=== PATIENT | male | born 1965 | race Hispanic/Latino ===

== ENCOUNTER 2016-05-05 11:04 | Emergency (ER) | payer OTHER, MEDICARE ==
[~2016-05-05] VITALS: Ht 162.6 cm; Wt 78.5 kg
[~2016-05-05 11:04] MED LIST: ASPIR 8181 MG PO; ATORVASTATIN CA20 MG PO; ATORVASTATIN CA40 MG PO; CLOPIDOGREL75 MG PO; COREG12.5 M1 PO; COUMADIN 3 MG TA3 MG PO; ESCITALOPRAM OX10 MG PO; JANUMET 1000 MG1 TAB PO; LANTUS SOL100 UNIT/1 SC; LANTUS100 U/ML SC; LISINOPRIL10 MG PO; LOPID 600 MG T600 MG PO; METFORMIN HCL500 M3 PO; NITROSTAT0.4 M1 SL; PROTONIX40 M3 PO; TOPROL XL25 M1 PO
--- NOTE | 2016-05-05 12:00 | ED GI/GU/ABDOMINAL COMPLAINT ---
History of Present Illness General Chief Complaint: Abdominal Pain/Flank Pain Stated Complaint: LT SIDED ABD PAIN Source: patient, family Exam Limitations: no limitations Vital Signs & Intake/Output Vital Signs & Intake/Output Vital Signs Date Time Temp Pulse Resp B/P Pulse O2 O2 Flow FiO2 Ox Delivery Rate 05/05 1501 97.5 71 20 137/86 96 Room Air 05/05 1150 97.3 86 20 97 Room Air Room Air Allergies Coded Allergies: NO KNOWN ALLERGIES (01/26/14) Reconcile Medications Atorvastatin Calcium 40 MG TABLET 1 TAB PO DAILY CHOLESTEROL (Reported) Carvedilol (Coreg) 12.5 MG TABLET 1 TAB PO BID HEART (Reported) Escitalopram Oxalate 10 MG TABLET 1 TAB PO DAILY DEPRESSION (Reported) Insulin Glargine,Hum.rec.anlog (Lantus Solostar) 100 UNIT/ML (3 ML) INSULN.PEN 56 UNIT SC QPM DIABETES (Reported) Meloxicam (Mobic) 15 MG TABLET 1 TAB PO DAILY PRN PAIN Metformin HCl 500 MG TABLET 1 TAB PO BID DIABETES (Reported) Metoprolol Succ XL (Toprol XL) 25 MG TAB 1 TAB PO DAILY HEART (Reported) Nitroglycerin (Nitrostat) 0.4 MG TAB.SUBL 1 TAB SL AD PRN CHEST PAIN ( Reported) 1st sign of attack; may repeat every 5 minutes until relief; if pain persists after 3 tablets in 15 minutes, prompt medical att Pantoprazole Sodium (Protonix) 40 MG TABLET.DR 1 TAB PO DAILY GI (Reported) Warfarin Sodium (Coumadin) (Unknown Strength) TABLET (Unknown Dose) PO 1700 BLOOD THINNER (Reported) Triage Note: PT TO ED WITH C/O LOW LEFT ABD PAIN RADIATING TO BILATERAL BACK. PT DENIES N/V/D, DENIES URINARY DIFF OR PAIN. Triage Nurses Notes Reviewed? yes Onset: Gradual Duration: constant Timing: recent history Quality/Severity: sharpness, severe, stabbing Severity Numbers: 7 Activities at Onset: physical activity Prior Abdominal Problems: none HPI: Patient is a 50-year-old male with a past medical history significant for CAD, 5 myocardial infarction, CVA, who presents emergency room with a 2 day history of acute onset of persistent left lower quadrant abdominal pain with radiation to the left side of his back. Movements make worse Patient has taken ibuprofen with relief Patient does state that he walk excessively prior to the onset of symptoms however he denies any mechanism injury. Patient is able tolerate by mouth with no change in symptoms. Last bowel movement was within last 24 hours no blood no melena noted. Denies any fever chills chest pain arm pain jaw pain nausea vomiting dysuria hematuria. (MAVIS KELLY) Past History Travel History Traveled to [place] past 21 day No Medical History Any Pertinent Medical History? 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 . MOTHER MOTHER (cva). Hx Contributory? No (MAVIS KELLY) Review of Systems Review of Systems Constitutional: Reports: no symptoms. EENTM: Reports: no symptoms. Respiratory: Reports: no symptoms. Cardiovascular: Reports: no symptoms. GI: Reports: see HPI, abdominal pain. Genitourinary: Reports: no symptoms. Musculoskeletal: Reports: see HPI. Skin: Reports: no symptoms. Neurological/Psychological: Reports: no symptoms. Hematologic/Endocrine: Reports: no symptoms. Immunologic/Allergic: Reports: no symptoms. All Other Systems: Reviewed and Negative (MAVIS KELLY) Physical Exam Physical Exam General Appearance: well developed/nourished, no apparent distress, comfortable Gastrointestinal: normal bowel sounds, soft, LEFT UPPER AND LOWER AND FLANK POINT TENDERNESS NOTED NO RIGHT LOWER QUADRANT PAIN NO REBOUND TENDERNESS Comments: Well-developed well-nourished person in no acute distress HEENT: Normal EENT exam, Neck: Supple, no lymphadenopathy, normal range of motion without pain or tenderness Back: Normal inspection, left paralumbar muscular point tenderness noted, decreased active range of motion noted Cardiovascular: Regular rate and rhythms no murmurs rubs or gallops, normal JVP Respiratory: Chest nontender. No respiratory distress.breath sounds clear to auscultation bilaterally Abdomen: Soft, nontender nondistended, no appreciable organomegaly. Normal bowel sounds. No ascites Extremity: No edema, no calf tenderness to palpation, normal and equal pulses. Neuro: Alert oriented x3, motor sensory normal, Skin: No appreciable rash on exposed skin, skin is warm and dry. Psych: Mood and affect is normal, memory and judgment is normal. Core Measures ACS in differential dx? No Severe Sepsis Present: No Septic Shock Present: No ([place] AQUINO,MAVIS) Progress Differential Diagnosis: AAA, AMI, appendicitis, biliary colic, bowel obstruction , colon cancer, cholecystitis, diverticulitis, epididymitis, esophageal varices, gastritis, hepatitis, hernia, hemorrhoids, ischemic bowel, inflamm bowel dis, Mary-Mauricio tear, orchitis, pancreatitis, prostatitis, peptic ulcer, PUD/GERD, perforated viscous, pyelonephritis, SBO, STD, testicular torsion, ureterolithiasis, urinary retention, urethritis, UTI/pyelo Plan of Care: Orders Procedure Date/time Status URINALYSIS 05/05 1152 Complete PARTIAL THROMBOPLASTIN TIME 05/05 1152 Complete PROTHROMBIN TIME 05/05 1152 Complete LIPASE 05/05 1152 Complete COMPREHENSIVE METABOLIC PANEL 05/05 1152 Complete CBC WITHOUT DIFFERENTIAL 05/05 1152 Complete AMYLASE 05/05 1152 Complete Laboratory Tests 05/05/16 1252: Urine Color YEL, Urine Clarity CLEAR, Urine pH 6.0, Ur Specific [place] 1.020, Urine Protein NEG, Urine Ketones NEG, Urine Nitrite NEG, Urine Bilirubin NEG, Urine Urobilinogen 0.2, Ur Leukocyte Esterase NEG, Ur Microscopic EXAM NOT REQUIRED, Urine Hemoglobin NEG, Urine Glucose NEG 05/05/16 1158: Anion Gap 9, Estimated GFR > 60, BUN/Creatinine Ratio 8.3, Glucose 207 H, Calcium 9.9, Total Bilirubin 0.5, AST 19, ALT 29, Alkaline Phosphatase 95, Total Protein 6.8, Albumin 3.8, Globulin 3.0, Albumin/Globulin Ratio 1.3, Amylase 38, Lipase 92, PT 11.7, INR 1.12, APTT 32, CBC w Diff NO MAN DIFF REQ, RBC 5.11, MCV 87.7, MCH 30.7, RDW 13.3, MPV 8.6, Gran % 66.9, Lymphocytes % 22.2, Monocytes % 4.7, Eosinophils % 5.7 H, Basophils % 0.5, Absolute Granulocytes 7.3 H, Absolute Lymphocytes 2.4, Absolute Monocytes 0.5, Absolute Eosinophils 0.6, Absolute Basophils 0.1, PUBS MCHC 35.1 Patient currently is in no apparent distress. Patient had unremarkable labs and CT scan. Patient had complete resolution of pain with above medications of Vicodin. Due to his present nose and exam findings I suspect patient have abdominal wall muscular back pain On discharge patient had normal steady gait and no apparent distress. (MAVIS KELLY) Diagnostic Imaging: Viewed by Me: CT Scan. Radiology Impression: no acute abnormality Initial ED EKG: none Comments: PATIENT: HERON YEBOAH PRESENT AGE: 50 PATIENT ACCOUNT NO: [id number] : 64 LOCATION: [facility] ORDERING PHYSICIAN: MAVIS AQUINO SERVICE DATE: 05/05/16 EXAM TYPE: CAT - CT ABD & PELVIS W/O IV CONTRAS EXAMINATION: CT ABDOMEN AND PELVIS WITHOUT CONTRAST CLINICAL INFORMATION: Left abdominal pain with radiation to back. COMPARISON: None TECHNIQUE: Multidetector volumetric imaging was performed from the superior aspect of the liver through the pubic symphysis. Sagittal and coronal reformatted images were obtained on the technologist's workstation. DLP: 508.12 mGy-cm FINDINGS: LUNG BASES: The lung bases are clear. There is a trace left pleural effusion. The heart is normal in size. There is no pericardial effusion. LIVER, GALLBLADDER, AND BILIARY TREE: The unenhanced liver is normal in size. No focal hepatic lesion or biliary ductal dilatation is present. The gallbladder is unremarkable with no evidence of radiopaque gallstones, gallbladder wall thickening, or obvious pericholecystic inflammatory changes. PANCREAS: Unremarkable. SPLEEN: Unremarkable. ADRENAL GLANDS: Unremarkable. KIDNEYS AND URETERS: The kidneys are normal in size, shape, and attenuation. No hydronephrosis, hydroureter, or calculi seen. No perinephric stranding. BLADDER: Unremarkable. GASTROINTESTINAL TRACT: The small and large bowel are unremarkable. The appendix is unremarkable. ABDOMINAL WALL: No significant hernia is appreciated. LYMPH NODES: No lymphadenopathy. VASCULAR: The visualized aorta is normal in caliber. PELVIC VISCERA: Unremarkable. OSSEOUS STRUCTURES: Mild degenerative changes of the thoracolumbar spine. IMPRESSION: No CT explanation for left abdominal pain. DICTATED BY: KALE WEBB MD (MAVIS KELLY) Departure Departure Disposition: HOME OR SELF CARE Condition: Stable Clinical Impression Primary Impression: Abdominal pain Secondary Impressions: Back pain Referrals: BISI KOWALSKI,TREY (PCP/Family) Additional Instructions: As discussed begin icing the area directly 20 minutes every 2 hours. Begin the prescription of meloxicam for pain and inflammation. Activity as tolerated. No but on Thursday follow up with YOUR primary care doctor. Prescription is waiting at [place] [facility] Departure Forms: Customer Survey General Discharge Information Prescriptions: Current Visit Scripts Meloxicam (Mobic) 1 TAB PO DAILY PRN PAIN #15 TAB (MAVIS KELLY) PA/TIMBER GRADER Co-Sign Statement Statement: ED Attending supervision documentation- [] I saw and evaluated the patient. I have also reviewed all the pertinent lab results and diagnostic results. I agree with the findings and the plan of care as documented in the PA's/TIMBER GRADER's documentation. [X] I have reviewed the ED Record and agree with the PA's/TIMBER GRADER's documentation. [] Additions or exceptions (if any) to the PAs/TIMBER GRADER's note and plan are summarized below: [] (BIRD KOWALSKI,MYRIAM Clemons)
[2016-05-05 12:09] LABS: ABSOLUTE BASOPHIL COUNT 0.1 /CUMM (0.0-0.2); ABSOLUTE EOSINOPHIL COUNT 0.6 /CUMM (0.0-0.7); ABSOLUTE GRANULOCYTE CT 7.3 /CUMM (1.4-6.5); ABSOLUTE LYMPH COUNT 2.4 /CUMM (1.2-3.4); ABSOLUTE MONOCYTE COUNT 0.5 /CUMM (0.10-0.60); BASOPHIL % 0.5 % (0.0-2.0); EOSINOPHIL % 5.7 % (0-5); GRANULOCYTE % 66.9 % (42.2-75.2); HEMATOCRIT 44.9 % (42-52); MEAN CORPUSCULAR HGB 30.7 PG (27.0-31.0); MEAN CORPUSCULAR HGB CONC 35.1 G/DL (33.0-37.0); MEAN CORPUSCULAR VOLUME 87.7 FL (80.0-94.0); MEAN PLATELET VOLUME 8.6 FL (7.4-10.4); PLATELET COUNT 300 /CUMM (130-400); RBC DISTRIBUTION WIDTH 13.3 % (11.5-14.5); RED BLOOD CELL CT 5.11 /CUMM (4.70-6.10)
[2016-05-05 12:28] LABS: PT 11.7 SEC (9.4-12.5)
[2016-05-05] MEDS ORDERED: ATORVASTATIN CA40 M1 PO (12:31)
[2016-05-05] MEDS ORDERED: COUMADIN3 M1 PO (12:33)
[2016-05-05 12:43] LABS: PTT 32 SEC (25-37)
--- NOTE | 2016-05-05 14:21 | CT SCAN REPORT ---
EXAMINATION: CT ABDOMEN AND PELVIS WITHOUT CONTRAST CLINICAL INFORMATION: Left abdominal pain with radiation to back. COMPARISON: None TECHNIQUE: Multidetector volumetric imaging was performed from the superior aspect of the liver through the pubic symphysis. Sagittal and coronal reformatted images were obtained on the technologist's workstation. DLP: 508.12 mGy-cm FINDINGS: LUNG BASES: The lung bases are clear. There is a trace left pleural effusion. The heart is normal in size. There is no pericardial effusion. LIVER, GALLBLADDER, AND BILIARY TREE: The unenhanced liver is normal in size. No focal hepatic lesion or biliary ductal dilatation is present. The gallbladder is unremarkable with no evidence of radiopaque gallstones, gallbladder wall thickening, or obvious pericholecystic inflammatory changes. PANCREAS: Unremarkable. SPLEEN: Unremarkable. ADRENAL GLANDS: Unremarkable. KIDNEYS AND URETERS: The kidneys are normal in size, shape, and attenuation. No hydronephrosis, hydroureter, or calculi seen. No perinephric stranding. BLADDER: Unremarkable. GASTROINTESTINAL TRACT: The small and large bowel are unremarkable. The appendix is unremarkable. ABDOMINAL WALL: No significant hernia is appreciated. LYMPH NODES: No lymphadenopathy. VASCULAR: The visualized aorta is normal in caliber. PELVIC VISCERA: Unremarkable. OSSEOUS STRUCTURES: Mild degenerative changes of the thoracolumbar spine. IMPRESSION: No CT explanation for left abdominal pain.
[2016-05-05] MEDS ORDERED: MOBIC15 M1 PO (14:50)
[2016-05-05 15:01] VITALS: BP 137/86
== END 2016-05-05 15:02 ==
LOC: ERH 11:04
PROVIDERS: Emergency Medicine
DX: R10.12 Left upper quadrant pain (principal); R10.32 Left lower quadrant pain; M54.9 Dorsalgia, unspecified
CPT/HCPCS: 74176; 81003

== ENCOUNTER 2017-03-05 06:02 | Emergency (ER) | payer OTHER, MEDICARE ==
[~2017-03-05] VITALS: Ht 162.6 cm; Wt 78.5 kg
[~2017-03-05 06:02] MED LIST changes: +ATORVASTATIN CA40 M1 PO; +COUMADIN3 M1 PO; +MOBIC15 M1 PO
--- NOTE | 2017-03-05 06:13 | ED CARDIAC/CP/PALPITATIONS ---
History of Present Illness General Chief Complaint: Chest Pain Stated Complaint: CHEST PAIN HX UT Source: patient Exam Limitations: no limitations Vital Signs & Intake/Output Vital Signs & Intake/Output Vital Signs Date Time Temp Pulse Resp B/P B/P Pulse O2 O2 Flow FiO2 Mean Ox Delivery Rate 03/05 0719 99 22 109/68 100 Nasal 2.0L Cannula 03/05 0555 105 22 109/68 97 Nasal 2.0L Cannula 03/05 0648 100 22 96/58 99 Nasal 2.0L Cannula 03/05 0632 92 20 103/59 98 Nasal 2.0L Cannula 03/05 0620 93 Room Air Room Air 03/05 0515 103 20 123/73 93 Room Air Room Air see triage Allergies Coded Allergies: NO KNOWN ALLERGIES (01/26/14) Reconcile Medications Atorvastatin Calcium 40 MG TABLET 1 TAB PO DAILY CHOLESTEROL (Reported) Carvedilol (Coreg) 12.5 MG TABLET 1 TAB PO BID HEART (Reported) Escitalopram Oxalate 10 MG TABLET 1 TAB PO DAILY DEPRESSION (Reported) Insulin Glargine,Hum.rec.anlog (Lantus Solostar) 100 UNIT/ML (3 ML) INSULN.PEN 56 UNIT SC QPM DIABETES (Reported) Meloxicam (Mobic) 15 MG TABLET 1 TAB PO DAILY PRN PAIN Metformin HCl 500 MG TABLET 1 TAB PO BID DIABETES (Reported) Metoprolol Succ XL (Toprol XL) 25 MG TAB 1 TAB PO DAILY HEART (Reported) Nitroglycerin (Nitrostat) 0.4 MG TAB.SUBL 1 TAB SL AD PRN CHEST PAIN ( Reported) 1st sign of attack; may repeat every 5 minutes until relief; if pain persists after 3 tablets in 15 minutes, prompt medical att Pantoprazole Sodium (Protonix) 40 MG TABLET.DR 1 TAB PO DAILY GI (Reported) Warfarin Sodium (Coumadin) (Unknown Strength) TABLET (Unknown Dose) PO 1700 BLOOD THINNER (Reported) Triage Nurses Notes Reviewed? yes Onset: Abrupt Duration: hour(s): (FEW) Timing: single episode today Location: central Radiation: substernal Activities at Onset: sleep Prior Chest Pain/Card Workup: SHOULDERS Aspirin Today: no aspirin today HPI: 51 year this is a 51-year-old male with history of coronary, persistent smoker who presents to the ER with chief complaint of chest pain that woke him up at 3 AM from sleep. He reports a heaviness in his chest radiating to her shoulders. Positive shortness of breath and nausea but no vomiting. He tried taking 2 nitroglycerin at home without relief. History of multiple MIs. He still smokes about 1-1/2 packs per day. Patient states his doctors are per [facility]. From medical charts he has a history of CAD with LAD stenting in 2007 and he states he is compliant with his medications and an implanted device. He reports drinking 2 beers last night. Denies any illicit drug use. (Sally Villalpando MD) Past History Medical History Any Pertinent Medical History? 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 . MOTHER MOTHER (cva). Hx Contributory? No (Sally Villalpando MD) Review of Systems Review of Systems Constitutional: Denies: chills, fever. EENTM: Reports: no symptoms. Respiratory: Reports: short of breath. Denies: cough, sputum production. Cardiovascular: Reports: chest pain. GI: Reports: nausea, vomiting. Genitourinary: Denies: discharge, dysuria, frequency, hematuria. Musculoskeletal: Reports: no symptoms. Skin: Reports: no symptoms. Neurological/Psychological: Reports: no symptoms. Hematologic/Endocrine: Denies: bruising, bleeding, polyuria, polydipsia. Immunologic/Allergic: Reports: no symptoms. All Other Systems: Reviewed and Negative (Sally Villalpando MD) Physical Exam Physical Exam General Appearance: well developed/nourished, alert, awake Head: atraumatic, normal appearance Eyes: Bilateral: normal appearance, PERRL, EOMI. Ears, Nose, Throat: normal pharynx, normal ENT inspection, hearing grossly normal Neck: normal inspection, supple, full range of motion Respiratory: normal breath sounds, chest non-tender, no respiratory distress Cardiovascular: regular rate/rhythm Peripheral Pulses: 2+ radial (R), 2+ radial (L) Gastrointestinal: normal bowel sounds, soft, non-tender Back: normal inspection, normal range of motion Neurologic/Psych: no motor/sensory deficits, awake, alert, oriented x 3 Skin: intact, normal color, warm/dry Core Measures ACS in differential dx? Yes CVA/TIA Diagnosis No Sepsis Present: No Sepsis Focused Exam Completed? No (Kwasi KOWALSKI,Sally) Physical Exam Extremities: normal range of motion (Kareen KOWALSKI,Conrad Gaytan) Progress Differential Diagnosis: AMI, unstable angina Plan of Care: Orders Procedure Date/time Status EKG 03/05 0549 Active Telemetry/Technical Operations Vice President 03/05 616 Active LIPASE 03/05 615 Complete ETHANOL 03/05 615 Complete EKG 03/05 615 Active TROPONIN LEVEL 03/05 609 Complete PARTIAL THROMBOPLASTIN TIME 03/05 609 Complete PROTHROMBIN TIME 03/05 609 Complete COMPREHENSIVE METABOLIC PANEL 03/05 609 Complete CBC WITHOUT DIFFERENTIAL 03/05 609 Complete EKG 03/05 603 Active Current Medications Sig/Gennaro Start time Last Medication Dose Stop Time Status Admin Heparin Sodium 25,000 UNIT Q24H 03/05 07 UNVr 03/05 (Porcine) 0748 (Heparin) Sodium Chloride 500 ML Laboratory Tests 03/05/17617: Lipase Cancelled, Serum Alcohol Cancelled 03/05/17615: Anion Gap 16, Estimated GFR > 60, BUN/Creatinine Ratio 11.4, Glucose 184 H, Calcium 9.4, Total Bilirubin 0.3, AST 21, ALT 40, Alkaline Phosphatase 87, Troponin I 0.03, Total Protein 6.5, Albumin 3.8, Globulin 2.7, Albumin/Globulin Ratio 1.4, Lipase 93, PT 12.1, INR 1.15, APTT 37, CBC w Diff NO MAN DIFF REQ, RBC 4.96, MCV 89.7, MCH 30.0, RDW 13.6, MPV 8.2, Gran % 60.6, Lymphocytes % 26.7 , Monocytes % 6.1, Eosinophils % 6.0 H, Basophils % 0.6, Absolute Granulocytes 6.7 H, Absolute Lymphocytes 3.0, Absolute Monocytes 0.7 H, Absolute Eosinophils 0.7, Absolute Basophils 0.1, PUBS MCHC 33.4, Serum Alcohol < 10.0 6:48 AM PERSISENT CP DESPITE NITRO SL. CARDIOLOGY PAGED. PERSISTENT ST DEPRESSIONS SEPTAL LEADS 7:10 AM D/W DR SOFIA, RECOMMENDS [facility] TRANSFER TO [facility]. DR MATHUR TO TRANSFER PATIENT. Diagnostic Imaging: Viewed by Me: Radiology Read. Discussed w/RAD: Radiology Read. CXR Impression: PATIENT: HERON EYBOAH PRESENT AGE: 51 PATIENT ACCOUNT NO: [id number] : 64 LOCATION: [facility] ORDERING PHYSICIAN: Sally Villalpando MD SERVICE DATE: 03/05/17 EXAM TYPE: RAD - XRY-PORTABLE CHEST XRAY EXAMINATION: XR PORTABLE CHEST CLINICAL INFORMATION: Chest pain COMPARISON: 07/25/2014 TECHNIQUE: Portable frontal view of the chest was obtained. FINDINGS: Cardiac leads overlie the chest. Loop recorder device overlies the left hemithorax. Lung volumes are low. No consolidation, edema, or effusion. No pneumothorax. The cardiomediastinal silhouette is within normal limits. No acute osseous abnormality. IMPRESSION: Hypoexpanded lungs with no acute pulmonary finding. DICTATED BY: Lawrence Becerra MD DATE/TIME DICTATED:03/05/17637 TESTING TECH:CLAUDIA DATE/TIME TRANSCRIBED:03/05/17637 CONFIDENTIAL, DO NOT COPY WITHOUT APPROPRIATE AUTHORIZATION. <Electronically signed in Other Vendor System> SIGNED BY: Lawrence Becerra MD 03/05/17641 Initial ED EKG: NSR, ST depression (v2-v6) Rhythm Strip: normal sinus rhythm Hand-Off Endorsed To: Conrad Mathur MD Endorsed Time: 703 Pending: consult (CARDIOLOGY), labs (Kwasi KOWALSKI,Sally) Comments: 07:22 PT SIGNED OUT TO ME BY DR VILLALPANDO. Patient has ongoing severe chest pain despite aspirin and morphine at home nitroglycerin. Patient's pulses are equal and his chest x-ray shows no widening of the mediastinum or other indication of aortic aneurysm or dissection. Review of patient's abdominal pelvic CAT scan last year showed a normal aorta. CASE D/W DR GERARD [facility] MEAT STOCK CLERK. ACCEPTED. SUGGESTS HEPARIN, NO BRILINTA. 07:39 [facility] CONTACTED. 10-15 MIN ETA. MORPHINE ORDERED FOR CONTINUING PAIN. (Kareen KOWALSKI,Conrad Gaytan) Departure Departure Condition: Stable Clinical Impression Primary Impression: ACS (acute coronary syndrome) Departure Forms: Customer Survey General Discharge Information (Sally Villalpando MD) Departure Disposition: OTHER [facility] (ACUTE) (Conrad Mathur MD) Critical Care Note Critical Care Note Critical Care Time: non-applicable (Sally Villalpando MD) Critical Care Note Critical Care Time: 30-74 min (Conrad Mathur MD) Critical Care Note Critical Care Time: non-applicable (Sally Villalpando MD) Critical Care Note Critical Care Time: 30-74 min (Conrad Mathur MD)
[2017-03-05 06:37] LABS: ABSOLUTE BASOPHIL COUNT 0.1 /CUMM (0.0-0.2); ABSOLUTE EOSINOPHIL COUNT 0.7 /CUMM (0.0-0.7); ABSOLUTE GRANULOCYTE CT 6.7 /CUMM (1.4-6.5); ABSOLUTE MONOCYTE COUNT 0.7 /CUMM (0.10-0.60); BASOPHIL % 0.6 % (0.0-2.0); GRANULOCYTE % 60.6 % (42.2-75.2); HEMATOCRIT 44.5 % (42-52); MEAN CORPUSCULAR HGB CONC 33.4 G/DL (33.0-37.0); MEAN CORPUSCULAR VOLUME 89.7 FL (80.0-94.0); MEAN PLATELET VOLUME 8.2 FL (7.4-10.4); PLATELET COUNT 306 /CUMM (130-400); RBC DISTRIBUTION WIDTH 13.6 % (11.5-14.5); RED BLOOD CELL CT 4.96 /CUMM (4.70-6.10); WHITE BLOOD CELL COUNT 11.1 /CUMM (4.8-10.8)
--- NOTE | 2017-03-05 06:42 | RADIOLOGY REPORT ---
EXAMINATION: XR PORTABLE CHEST CLINICAL INFORMATION: Chest pain COMPARISON: 07/25/2014 TECHNIQUE: Portable frontal view of the chest was obtained. FINDINGS: Cardiac leads overlie the chest. Loop recorder device overlies the left hemithorax. Lung volumes are low. No consolidation, edema, or effusion. No pneumothorax. The cardiomediastinal silhouette is within normal limits. No acute osseous abnormality. IMPRESSION: Hypoexpanded lungs with no acute pulmonary finding.
[2017-03-05 06:47] LABS: PT 12.1 SEC (9.4-12.5); PTT 37 SEC (25-37)
[2017-03-05 07:19] VITALS: BP 109/68
== END 2017-03-05 08:22 | disposition short-term general hospital (02) ==
LOC: ERH 06:02
PROVIDERS: Emergency Medicine
DX: I24.9 Acute ischemic heart disease, unspecified (principal); E11.9 Type 2 diabetes mellitus without complications; Z79.4 Long term (current) use of insulin
CPT/HCPCS: 71045; 93005; 93010; 96361; 96374; 96375; 96376; 99291; G0480; J1644; J7040